=== PATIENT | female | born 1985 | race Asian ===

== ENCOUNTER → 2017-11-21 | Day surgery (SDC) | payer OTHER ==
[~2017-11-21] VITALS: Ht 162 cm; Wt 57.2 kg
[2017-11-21 17:23] VITALS: BP 123/77
--- NOTE | 2017-11-21 17:24 | ED GI/GU/ABDOMINAL COMPLAINT ---
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 HAD U/S DONE 11/18. APPROX 5 WEEKS 6 DAYS GESTATION. . DENIES ABDOMINAL PAIN, N/V AT THIS TIME. PAIN 0/10. DENIES VAGINAL BLEEDING OR DISCHARGE. DENIES FEVERS/CHILLS. NPO SINCE 12PM. AFEBRILE Triage Nurses Notes Reviewed? yes ? Y Is pt currently ? No Duration: constant Timing: recent history Quality/Severity: cramping Severity Numbers: 1 Radiation: no radiation HPI: Patient is a 32-year-old female who is evaluated 3 days ago [place] emergency room for concerns of ectopic to the right adnexa where she was given IM methotrexate in the emergency room however she was followed up today by OB/ MANAGER PARKING Dr. CASTRO who advised patient to present to emergency room with concerns of failed outpatient treatment in which she was advised to have surgery performed by Dr. Mondragon. Patient denies any fever chills abdominal pain nausea vomiting vaginal bleeding or discharge dysuria hematuria (Quinn Myles) Past History Travel History Traveled to [place] past 21 day No Medical History Any Pertinent Medical History? none Neurological: NONE EENT: NONE Cardiovascular: NONE Respiratory: NONE Gastrointestinal: NONE Hepatic: NONE Renal: NONE Musculoskeletal: NONE Psychiatric: NONE Endocrine: NONE Blood Disorders: NONE Cancer(s): NONE MANAGER PARKING/Reproductive: NONE Surgical History Surgical History: non-contributory Psychosocial History What is your primary language Luxembourgish Tobacco Use: Never used Family History Hx Contributory? No (Quinn Myles) Review of Systems Review of Systems Constitutional: Reports: no symptoms. EENTM: Reports: no symptoms. Respiratory: Reports: no symptoms. Cardiovascular: Reports: no symptoms. GI: Reports: no symptoms. Genitourinary: Reports: no symptoms. Musculoskeletal: Reports: no symptoms. Skin: Reports: no symptoms. Neurological/Psychological: Reports: no symptoms. Hematologic/Endocrine: Reports: no symptoms. Immunologic/Allergic: Reports: no symptoms. All Other Systems: Reviewed and Negative (Quinn Myles) Physical Exam Physical Exam General Appearance: no apparent distress, alert Head: atraumatic Eyes: Bilateral: normal appearance. Ears, Nose, Throat, Mouth: moist mucous membrane Neck: normal inspection Respiratory: normal breath sounds Gastrointestinal: normal bowel sounds, soft, non-tender Extremities: normal range of motion Neurologic/Psych: no motor/sensory deficits, awake Skin: intact, normal color, warm/dry Core Measures ACS in differential dx? No Sepsis Present: No Sepsis Focused Exam Completed? No (Quinn Myles) Progress Differential Diagnosis: appendicitis, biliary colic, bowel obstruction, cholecystitis, diverticulitis, ectopic , endometritis, esophageal varices, gastritis, hepatitis, hernia, hemorrhoids, ischemic bowel, inflamm bowel dis, intrauterine , kidney stone, ovarian cyst, ovarian torsion, pancreatitis, PID/cervicitis, peptic ulcer, PUD/GERD, perforated viscous, SBO, threatened AB, UTI/pyelo Plan of Care: Orders Procedure Date/time Status Nothing by Mouth 11/22 B Active PATHOLOGY SPECIMEN 11/21 1936 Active CBC WITHOUT DIFFERENTIAL 11/22 1751 Complete Laboratory Tests 11/21/17 1750: CBC w Diff NO MAN DIFF REQ, RBC 4.78, MCV 83.9, MCH 27.5, MCHC 32.8 L, RDW 13.4 , MPV 8.6, Gran % 63.7, Lymphocytes % 30.9, Monocytes % 3.2, Eosinophils % 1.9, Basophils % 0.3, Absolute Granulocytes 4.6, Absolute Lymphocytes 2.2, Absolute Monocytes 0.2, Absolute Eosinophils 0.1, Absolute Basophils 0 Patient on initial presentation was resting comfortably at bedside denies any fever chills nausea vomiting or abdominal pain, patient has unremarkable physical exam, discussed patient with Dr. Mondragon who advised patient to receive CBCN BLOOD WORK ONLY AND IV access and will perform surgical intervention tonight. Patient was placed NPO Initial ED EKG: none (Quinn Myles) Departure Departure Disposition: STILL A PATIENT Condition: Stable Clinical Impression Primary Impression: Ectopic Referrals: Patient Has No Primary Care Dr (PCP/Family) Departure Forms: Customer Survey General Discharge Information Prescriptions: Current Visit Scripts No Known Home Medications OR/GI Note Spoke With: O'Salas MD,Carlos Eduardo Bustillos ED Treatment Decision: LUPILLO ASHBY requires urgent operative management or an emergent procedure that cannot be performed in the Emergency Room setting. Transport To: [facility] (Quinn Myles) PA/MARKET RESEARCH WORKER Co-Sign Statement Statement: ED Attending supervision documentation- [X] I saw and evaluated the patient. I have also reviewed all the pertinent lab results and diagnostic results. I agree with the findings and the plan of care as documented in the PA's/MARKET RESEARCH WORKER's documentation. [] I have reviewed the ED Record and agree with the PA's/MARKET RESEARCH WORKER's documentation. [] Additions or exceptions (if any) to the PAs/MARKET RESEARCH WORKER's note and plan are summarized below: [] I have seen and personally examined the patient and I agree with the PAs evaluation. No abdominal pain, no abdominal tenderness. (Richy MENENDEZ,Don Dimas) Critical Care Note Critical Care Note Critical Care Time: 30-74 min (Quinn Myles)
[2017-11-21 18:30] LABS: ABSOLUTE BASOPHIL COUNT 0 /CUMM (0.0-0.2); ABSOLUTE EOSINOPHIL COUNT 0.1 /CUMM (0.0-0.7); ABSOLUTE GRANULOCYTE CT 4.6 /CUMM (1.4-6.5); ABSOLUTE LYMPH COUNT 2.2 /CUMM (1.2-3.4); ABSOLUTE MONOCYTE COUNT 0.2 /CUMM (0.10-0.60); BASOPHIL % 0.3 % (0.0-2.0); EOSINOPHIL % 1.9 % (0-5); GRANULOCYTE % 63.7 % (42.2-75.2); HEMATOCRIT 40.1 % (37-47); MEAN CORPUSCULAR HGB 27.5 PG (27.0-31.0); MEAN CORPUSCULAR HGB CONC 32.8 G/DL (33.0-37.0); MEAN CORPUSCULAR VOLUME 83.9 FL (81.0-99.0); MEAN PLATELET VOLUME 8.6 FL (7.4-10.4); PLATELET COUNT 294 /CUMM (130-400); RBC DISTRIBUTION WIDTH 13.4 % (11.5-14.5); RED BLOOD CELL CT 4.78 /CUMM (4.20-5.40); WHITE BLOOD CELL COUNT 7.2 /CUMM (4.8-10.8)
--- NOTE | 2017-11-28 12:22 | Operative Report ---
Operative/Inv Procedure Report Surgery Date: 11/21/17 Name of Procedure: Left salpingectomy Pre-Operative Diagnosis: Left tubal ectopic Post-Operative Diagnosis: Left tubal ectopic Estimated Blood Loss: 50ml to 100ml Surgeon/Clay Machine Operator: Danita GARDNER,Carlos Eduardo Bustillos Anesthesia: general endotracheal tube Drains: [place] Specimens: Left tube with ectopic Complications: None Condition: Good Operative Indication: Left tubal Operative/Procedure Note Note: Patient was taken to the operating room placed in dorsal supine position timeout was undertaken with the patient awake. She underwent induction of general endotracheal anesthesia she was prepped and draped in usual sterile fashion a Harris cannula was placed on the cervix with a single-tooth tenaculum on the anterior lip of the cervix for mobilization. Stab wound incision was made in the umbilicus through which a varies needle was placed after checking for proper segment the abdominal/peritoneal cavity was insufflated with 3 L of CO2. A Visiport endoscopic trocar was placed through the umbilical incision and into the abdominal/peritoneal cavity under laparoscopic visualization a second stab wound incision was made in the left lower quadrant through which a 10 mm port was placed. A third stab wound incision was made in the right lower quadrant through which a 5 mm trocar was placed. The left tube was noted to have a ectopic there was no active bleeding all other anatomy was noted to be normal right tube and ovary left ovary was normal. Left tube was grasped the grasper and utilizing a 10 mm LigaSure proximal portion of the tube was ligated and cut successive bites were taken of the mesosalpinx down including the fimbria of the left uterine tube and Endo bag was placed and the ectopic tube was placed in the bag which was removed from the right lower quadrant incision and sent to pathology for examination. Hemostasis was judged to be excellent PEDICLES were again checked there were no adventitious abdi. Trochars were removed the abdomen was deflated of all CO2 fascial stitch of 0 Dexon was placed in both 10 mm incisions and the skin was closed with a 60 cuticular stitch Harris cannula suture tenaculum were removed patient was awakened and moved to recovery room in good condition thank you very much Carlos Eduardo Samayoa MD dictating operative report Findings: Left tubal
== END ==
LOC: ERH 17:02 → ER-OR 17:31 → ERH 17:31 → STS 18:13 → ER-OR 21:10
PROVIDERS: Physician Assistant
DX: O00.90 Unspecified ectopic pregnancy without intrauterine pregnancy (principal)
CPT/HCPCS: 88305; J0690